=== PATIENT | female | born 1975 | race Caucasian/White ===

== ENCOUNTER → 2018-11-12 | Outpatient (CLI) | payer BC ==
--- NOTE | 2018-11-12 15:04 | Diagnostic Imaging Report ---
INDICATION: Elbow pain. Three views were obtained. FINDINGS: There is a slight cortical irregularity along the medial aspect of the proximal ulna. This does not have the appearance of an acute fracture. This may reflect old injury. Alignment is otherwise normal. There is no other fracture dislocation. Soft tissues are unremarkable. IMPRESSION: Nonspecific cortical irregularity along the medial aspect of proximal ulna. This may reflect previous trauma or injury. No other acute fracture or dislocation. Dictated by: Dictated on workstation # [id number]
== END ==
LOC: RAD FS 13:24
PROVIDERS: ATTEND Nurse Practitioner
DX: M89.9 Disorder of bone, unspecified (principal); M25.521 Pain in right elbow
CPT/HCPCS: 73080

== ENCOUNTER → 2019-12-14 | Outpatient (CLI) | payer BC ==
--- NOTE | 2019-12-14 16:57 | Diagnostic Imaging Report ---
INDICATION: Bilateral wrist pain x 2 weeks. TIME OF EXAM: 3:00 PM. FINDINGS: Two views of each wrist were obtained. The distal radius and ulna are intact bilaterally. The carpus and visualized metacarpals appear to be intact. No fractures are seen. IMPRESSION: No acute bony abnormality is detected. Dictated by: Dictated on workstation # [id number]
== END ==
LOC: RAD FS 14:31
PROVIDERS: ATTEND Nurse Practitioner
DX: M25.531 Pain in right wrist (principal)